=== PATIENT | female | born 2000 | race Caucasian/White ===

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

== ENCOUNTER 2018-11-08 09:18 | Emergency (ER) ==
[2018-11-08 09:24] VITALS: BP 130/76; TEMP 98.9; BMI 17.3
[2018-11-08] MEDS ORDERED: SODIUM CHLORIDE 1,000 ML IV STA (09:49)
[2018-11-08] MEDS ORDERED: TORADOL IVP STA (09:50)
--- NOTE | 2018-11-08 09:52 | ED.PDOC ---
General ED Provider: Dr. HOLDEN ASHLEY Chief Complaint: Abdominal Pain Stated Complaint: patient c/o sharp stabbing pain to left uppe and lower quad. denies any change in urination. States onset 30 minutes after eatting yesterday evening. Last BM yesterday AM. Mildly nauseated. NO EMESIS Time Seen by Physician: 09:40 Mode of Arrival: Walk-In Information Source: Patient Exam Limitations: No limitations Primary Care Provider: ALLA LYNCH Nursing and Triage Documentation Reviewed and Agree: Yes Does patient meet sepsis criteria?: No If yes, has appropriate treatment been initiated?: No System Inflammatory Response Syndrome: Not Applicable Sepsis Protocol: For patient's 13 years and over: Temp is 96.8 and below OR 101 and greater Pulse >90 BPM Resp >20/minute Acutely Altered Mental Status Are patient's symptoms suggestive of a new infection, such as: -Pneumonia -Skin, Soft Tissue -Endocarditis -UTI -Bone, Joint Infection -Implantable Device -Acute Abdominal Infection -Wound Infection -Meningitis -Blood Stream Catheter Infection -Unknown GI Complaint Exam - Abdominal Pain Complaint/Exam Onset: Sudden Duration: 12 hrs Symptoms Are: Still present Timing: Constant (with intermittent lessening) Initial Severity: Moderate Current Severity: Moderate Location of Pain: LUQ, LLQ Character: Reports: Cramping, Colicky Aggravating: Reports: Position Alleviating: Reports: Rest Associated Signs and Symptoms: Reports: Decreased appetite, Nausea. Denies: Diaphoresis, Fever, Cough, Chest pain, Dizziness, Back pain, Constipation, Blood in stool, Dysuria, Urinary frequency, Decreased urine output, Vaginal bleeding, Vaginal discharge, Vomiting, Diarrhea, Sore throat, Decreased activity AAA Risk Factors: Reports: None Cardiac Risk Factors: Reports: None Ectopic Risk Factors: Reports: None Ovarian Torsion Risk Factors: Reports: None Surgical Obstruction Risk Factors: Reports: None Related Surgical History: Reports: None Abdominal Findings: Present: Abdominal distention. Absent: Rebound tenderness, Peritoneal signs, McBurney's Point tender, CVA Tenderness, Hernia, Inguinal swelling Differential Diagnoses: Constipation, Irritable Bowel Syndrome, UTI, Ovarian Cyst Review of Systems - Review Of Systems Constitutional: Reports: No symptoms Eyes: Reports: No symptoms Ears, Nose, Mouth, Throat: Reports: No symptoms Respiratory: Reports: No symptoms Cardiac: Reports: No symptoms GI: Reports: Abdomen distended, Abdominal pain, Constipated : Reports: No symptoms Musculoskeletal: Reports: No symptoms Skin: Reports: No symptoms Neurological: Reports: No symptoms Endocrine: Reports: No symptoms Hematologic/Lymphatic: Reports: No symptoms All Other Systems: Reviewed and Negative Past Medical History - Past Medical History Previously Healthy: Yes Endocrine: Reports: None Cardiovascular: Reports: None Respiratory: Reports: None Hematological: Reports: None Gastrointestinal: Reports: None Genitourinary: Reports: None Neuro/Psych: Reports: Seizure, Anxiety, Depression Musculoskeletal: Reports: None Cancer: Reports: None Last Menstrual Period: 3 weeks ago - Surgical History General Surgical History: Reports: None - Family History Family History: Reports: Unknown - Social History Smoking Status: Current every day smoker, Heavy tobacco smoker Hx Substance Use: No Alcohol Screening: None Physical Exam - Physical Exam Appearance: Ill-appearing Ill-appearing: Mild Pain Distress: Moderate Eyes: KOURTNEY, EOMI, Conjunctiva clear ENT: Ears normal, Nose normal, Oropharynx normal Neck: Supple Respiratory: Airway patent, Breath sounds clear, Breath sounds equal Cardiovascular: RRR, Pulses normal, No rub, No murmur GI/: Soft, No masses, Bowel sounds normal, Tender (LUQ without guarding, rebound or Rovsings) Musculoskeletal: Normal strength, ROM intact, No edema, No calf tenderness Skin: Warm, Dry, Normal color Neurological: Sensation intact, Motor intact, Reflexes intact, Cranial nerves intact, Alert, Oriented Psychiatric: Affect appropriate, Mood appropriate Interpretation - Radiology Interpretation Radiology Interpretation By: Radiologist Radiology Results: No acute changes Xray Comments: Reviewed and concur with Radiologist/moderate retained stool lt hemicolon Radiology Interpretation By: Radiologist Critical Care Note - Critical Care Note Total Time (mins): 60 Course - Course Hematology/Chemistry: 11/08/18 10:00 11/08/18 10:00 Orders, Labs, Meds: Lab Review 11/08/18 11/08/18 11/08/18 09:55 09:55 10:00 WBC 7.54 RBC 4.58 Hgb 12.1 Hct 38.0 MCV 83.0 MCH 26.4 L MCHC 31.8 RDW Coeff of Namita 16.0 H Plt Count 303 Immature Gran % (Auto) 0.1 Neut % (Auto) 60.7 Lymph % (Auto) 29.0 Rabun % (Auto) 8.6 Eos % (Auto) 0.9 Baso % (Auto) 0.7 Immature Gran # (Auto) 0.0 Neut # (Auto) 4.6 Lymph # (Auto) 2.2 Rabun # (Auto) 0.7 Eos # (Auto) 0.1 Baso # (Auto) 0.1 Sodium Potassium Chloride Carbon Dioxide Anion Gap BUN Creatinine Estimated GFR (MDRD) BUN/Creatinine Ratio Glucose Calcium Total Bilirubin AST ALT Alkaline Phosphatase Total Protein Albumin Globulin Albumin/Globulin Ratio Urine Color Yellow Urine Clarity Clear Urine pH 7.0 Ur Specific [place] 1.010 Urine Protein Negative Urine Glucose (UA) Negative Urine Ketones Negative Urine Blood Negative Urine Nitrite Negative Urine Bilirubin Negative Urine Urobilinogen 0.2 Ur Leukocyte Esterase Negative Urine Test Negative 11/08/18 10:00 WBC RBC Hgb Hct MCV MCH MCHC RDW Coeff of Namita Plt Count Immature Gran % (Auto) Neut % (Auto) Lymph % (Auto) Rab[place] % (Auto) Eos % (Auto) Baso % (Auto) Immature Gran # (Auto) Neut # (Auto) Lymph # (Auto) Rabun # (Auto) Eos # (Auto) Baso # (Auto) Sodium 138.9 Potassium 4.19 Chloride 107.0 Carbon Dioxide 27.3 Anion Gap 8.79 BUN 6.4 L Creatinine 0.66 Estimated GFR (MDRD) 114.00 BUN/Creatinine Ratio 9.69 Glucose 97.7 Calcium 9.64 Total Bilirubin 0.19 L AST 22.1 ALT 14.2 Alkaline Phosphatase 36.0 L Total Protein 7.97 Albumin 4.64 Globulin 3.33 Albumin/Globulin Ratio 1.39 Urine Color Urine Clarity Urine pH Ur Specific [place] Urine Protein Urine Glucose (UA) Urine Ketones Urine Blood Urine Nitrite Urine Bilirubin Urine Urobilinogen Ur Leukocyte Esterase Urine Test Orders Category Date Time Status IV [ED IV/MEDIPORT/POWERPORT] .ONCE EMERGENCY 11/08/18 09:49 Active CBC W/ AUTO DIFF Stat LAB 11/08/18 10:00 Completed CMP [COMPREHENSIVE METABOLIC PANEL] Stat LAB 11/08/18 10:00 Completed TEST URINE [URINE ] Stat LAB 11/08/18 09:55 Completed URINALYSIS C & S IF INDICATED Stat LAB 11/08/18 09:55 Completed 0.9 % Sodium Chloride [Saline Flush] MEDS 11/08/18 09:49 Discontinued 1 syr IVF PRN PRN 0.9 % Sodium Chloride [Saline Flush] MEDS 11/08/18 09:50 Discontinued 1 syr IVF PRN PRN Ketorolac Tromethamine [Toradol] MEDS 11/08/18 09:50 Discontinued 30 mg IVP ONCE STA Sodium Chloride 0.9% [Sodium Chloride] 1,000 ml MEDS 11/08/18 09:[address] ABDOMEN/PELVIS WO CONTRAST Stat RADS 11/08/18 09:51 Completed Medications Discontinued Medications Generic Name Dose Route Start Last Admin Trade Name Freadalid PRN Reason Stop Dose Admin Sodium Chloride 1,000 mls @ 500 mls/hr 11/08/18 09:49 11/08/18 10:25 Sodium Chloride IV 11/08/18 11:48 500 mls/hr BOLUS STA Administration Ketorolac Tromethamine 30 mg 11/08/18 09:50 11/08/18 10:25 Toradol IVP 11/08/18 09:51 30 mg ONCE STA Administration Sodium Chloride 1 syr 11/08/18 09:49 11/08/18 10:25 Saline Flush IVF 1 syr PRN PRN Administration To flush IV Sodium Chloride 1 syr 11/08/18 09:50 Saline Flush IVF PRN PRN To flush IV Vital Signs: Temp Pulse Resp BP Pulse Ox 11/08/18 09:20 98.9 F 74 20 130/76 99 Departure - Departure Time of Disposition: 12:10 Disposition: HOME SELF-CARE Discharge Problem: Abdominal pain, Constipation Instructions: Constipation (ED), Acute Abdominal Pain (ED) Condition: Good Pt referred to PMD for follow-up: Yes (with in 7 days) IPMP verified?: No Additional Instructions: Remain on clear liquid diet until successful with BM Obtain Magesium Citrate OTC and take at home for use to alleviate constipation Increase bulk and fiber in diet Can use Combination prune juice, 6 oz plus sprite and orange juice to drink to assist with constipation. Follow up as needed Allergies/Adverse Reactions: Allergies No Known Allergies Allergy (Verified 11/30/18 14:13) Home Medications: Ambulatory Orders Norelgestromin/Ethin.estradiol [Xulane Patch] 1 each TD WEEKLY 04/28/18 Additional Information: Reviewed CT scan /discussed with patient/ Feeling much better before discharge
[2018-11-08 10:11] LABS: URINE PREGNANCY TEST NEGATIVE (NEGATIVE)
--- NOTE | 2018-11-08 10:51 | CT ---
EXAM: CT of the abdomen pelvis without contrast History: Left-sided abdominal pain. Comparison: CT abdomen pelvis 12/17/2016 Technique: Multiplanar CT images through the abdomen pelvis were obtained without the administration of IV contrast Findings: Lung bases are clear. No acute osseous abnormalities. No discrete gallstones identified by CT. No focal liver or splenic lesions. No peripancreatic infla mmation. Adrenal glands are unremarkable. No renal stones and no hydronephrosis. The appendix is n ot seen. There are no secondary signs of appendicitis. No bladder wall thickening. Adnexal structu res appear appropriate for patient's age. No perirectal inflammation. Tampon is seen in place. Mod erate colonic stool. No free air and no ascites. No inflammatory stranding. Impression: No acute intra-abdominal or pelvic process
== END 2018-11-08 12:46 | disposition home or self-care (01) ==
LOC: ED 09:18
DX: R10.9 Unspecified abdominal pain (principal); K59.00 Constipation, unspecified; F17.210 Nicotine dependence, cigarettes, uncomplicated
CPT/HCPCS: 36415; 80053; 81001; 81025; 85025; 96374; 99283

== ENCOUNTER 2018-11-30 14:05 | Emergency (ER) ==
[2018-11-30 14:12] VITALS: BP 125/73; TEMP 97.7; BMI 17.8
--- NOTE | 2018-11-30 14:41 | ED.PDOC ---
General ED Provider: Dr. BABAR DASH Chief Complaint: Finger Laceration Stated Complaint: accidental nondeglowing small laceration of digit IV tip with flap present. Time Seen by Physician: 14:55 Mode of Arrival: Walk-In Information Source: Patient Exam Limitations: No limitations Primary Care Provider: ALLA LYNCH Referred to ED by: Other Nursing and Triage Documentation Reviewed and Agree: Yes Does patient meet sepsis criteria?: No System Inflammatory Response Syndrome: Not Applicable Sepsis Protocol: For patient's 13 years and over: Temp is 96.8 and below OR 101 and greater Pulse >90 BPM Resp >20/minute Acutely Altered Mental Status Are patient's symptoms suggestive of a new infection, such as: -Pneumonia -Skin, Soft Tissue -Endocarditis -UTI -Bone, Joint Infection -Implantable Device -Acute Abdominal Infection -Wound Infection -Meningitis -Blood Stream Catheter Infection -Unknown Trauma/Injury Complaint Exam - Trauma Complaint/Exam Location of Pain or Injury: Reports: RUE Mechanism of Injury: Reports: Incised, Other Onset/Duration: today Symptoms Are: Still present Timing of Treatment: Immediate Initial Severity: Mild Current Severity: Mild Character: Reports: Burning Aggravating: Reports: None Alleviating: Reports: None Associated Signs and Symptoms: Reports: Bruising Related History: Reports: Occupational injury : No Penetrating Injury Risk Factors: Reports: None Related Surgical History: Reports: None Differential Diagnoses: Abrasion, Contusions Review of Systems - Review Of Systems Constitutional: Reports: No symptoms Eyes: Reports: No symptoms Ears, Nose, Mouth, Throat: Reports: No symptoms Respiratory: Reports: No symptoms Cardiac: Reports: No symptoms GI: Reports: No symptoms : Reports: No symptoms Musculoskeletal: Reports: No symptoms Skin: Reports: Bruising, Other Neurological: Reports: No symptoms Endocrine: Reports: No symptoms Hematologic/Lymphatic: Reports: No symptoms All Other Systems: Reviewed and Negative Past Medical History - Past Medical History Previously Healthy: Yes Endocrine: Reports: None Cardiovascular: Reports: None Respiratory: Reports: None Hematological: Reports: None Gastrointestinal: Reports: None Genitourinary: Reports: None Neuro/Psych: Reports: Seizure, Anxiety, Depression Musculoskeletal: Reports: None Cancer: Reports: None Last Menstrual Period: 2 weeks ago - Surgical History General Surgical History: Reports: None - Family History Family History: Reports: Unknown - Social History Smoking Status: Current every day smoker, Light tobacco smoker Hx Substance Use: No Alcohol Screening: None - Immunizations Tetanus Shot up to Date: No Physical Exam - Physical Exam Appearance: Well-appearing Ill-appearing: None Pain Distress: None Eyes: KOURTNEY ENT: Ears normal Neck: Supple Respiratory: Airway patent Cardiovascular: RRR GI/: Soft, Nontender Musculoskeletal: Normal strength Skin: Warm, Dry Neurological: Sensation intact Psychiatric: Affect appropriate Re-Evaluation - Re-Evaluation Time of Re-Evaluation: 14:52 Status: Improved Vital Signs Stable: Yes Appearance: NAD Lungs: Clear Skin: Warm and Dry Neuro: Alert and Oriented X3 CV: RRR Additional Comments: dressing applied after sterile prep and ABx topical Critical Care Note - Critical Care Note Total Time (mins): 0 Course - Course Orders, Labs, Meds: Orders Category Date Time Status Diphth,Pertuss(Acell),Tet Vac [Boostrix] MEDS 11/30/18 14:51 Discontinued 0.5 ml IM .ONCE ONE Medications Discontinued Medications Generic Name Dose Route Start Last Admin Trade Name Freq PRN Reason Stop Dose Admin Diphtheria/Pertussis/Tetanus Vacc 0.5 ml 11/30/18 14:51 Boostrix IM 11/30/18 14:52 .ONCE ONE Vital Signs: Temp Pulse Resp BP Pulse Ox 11/30/18 14:05 97.7 F 78 16 125/73 99 Departure - Departure Time of Disposition: 14:53 Disposition: HOME SELF-CARE Discharge Problem: Laceration Instructions: Laceration Without Closure (ED) Condition: Good Pt referred to PMD for follow-up: No (follow with [facility]pr[facility]) IPMP verified?: No Allergies/Adverse Reactions: Allergies No Known Allergies Allergy (Verified 11/30/18 14:13) Home Medications: Ambulatory Orders Norelgestromin/Ethin.estradiol [Xulane Patch] 1 each TD WEEKLY 04/28/18 Disposition Discussed With: Patient
[2018-11-30] MEDS: BOOSTRIX IM ONE (14:58)
== END 2018-11-30 15:05 | disposition home or self-care (01) ==
LOC: ED 14:05
DX: S61.214A Laceration without foreign body of right ring finger without damage to nail, initial encounter (principal); W45.8XXA Other foreign body or object entering through skin, initial encounter; F17.210 Nicotine dependence, cigarettes, uncomplicated
CPT/HCPCS: 90471; 90715; 99283